=== PATIENT | female | born 1990 | race Caucasian/White ===

== ENCOUNTER 2020-09-22 15:52 | Inpatient (IN) | payer BC ==
[~2020-09-22] VITALS: Ht 162.6 cm; Wt 76.7 kg
--- NOTE | 2020-09-29 08:09 | PR ---
[facility] [address] [place], [place] [address] Signed PP Progress Notes Datetime Report Generated by CPN: 09/29/2020 08:09 SUBJECTIVE: [id number] Pain: Within Normal Limits Nausea/Vomiting: Denies Flatus: Yes Bowel Movement: No Vital Signs: [id number] Cardiovascular: Normal Respiratory: Normal Abdomen/Uterus: Normal Lochia: Normal Breasts: Normal Extremities: Normal Incision: Normal Exam Comments: NAD RRR No dyspnea fundus firm below umbilicus Dressing clean/dry without strikethrough IMPRESSION/PLAN/PROCEDURES: [id number] Impression: Normal Progression Plan: Continue Present Management Procedures: None Progress Notes: Pt is a 30 yo POD#1 s/p RLTCS -progressing well : Ambulating without dizziness/lightheadedness Lochia moderate well despite baby's tongue-tie Hgb 12.3 POD#1 from 13.2 preop Has not yet voided, tellez just removed Plan: continue routine antepartum care Anticipate DC to home tomorrow Signing Physician: Maykel Valentine DO Copies: *Electronically Signed* 09/29/20 08 MAYKEL VALENTINE DO PATIENT NAME: SVITLANA BEARDEN PROGRESS NOTE DATE OF : 88 PHYSICIAN: MAYKEL VALENTINE DO RPT #: [id number] REPORT IS CONFIDENTIAL AND NOT TO BE RELEASED WITHOUT AUTHORIZATION [address] [address] Signed ~ *Electronically Signed* 09/29/20 0809 MAYKEL VALENTINE DO PATIENT NAME: SVITLANA BEARDEN PROGRESS NOTE DATE OF : [birth year] PHYSICIAN: MAYKEL VALENTINE DO RPT #: [id number] REPORT IS CONFIDENTIAL AND NOT TO BE RELEASED WITHOUT AUTHORIZATION
--- NOTE | 2020-09-30 08:45 | PR ---
[facility] [address] [facility] [place], [place] [address] Signed PP Progress Notes Datetime Report Generated by CPKyle: 09/30/2020 08:45 SUBJECTIVE: [id number] Pain: Within Normal Limits Nausea/Vomiting: Denies Flatus: Yes Bowel Movement: No Vital Signs: [id number] Vital Signs: Reviewed; Within Normal Limits Cardiovascular: Normal Respiratory: Normal Abdomen/Uterus: Normal Lochia: Normal Breasts: Normal Extremities: Normal Incision: Normal Progress: Normal Exam Comments: NAD, nursing baby RRR CTAB FFBU Incision c/d/i, kade removed and replaced with steri strips Extremities: trace edema IMPRESSION/PLAN/PROCEDURES: [id number] Impression: Normal Progression Plan: Continue Present Management; Remove Kade; Discharge Procedures: None Progress Notes: POD#2 s/p RLTCS Progressing well pain well controlled with percocet and motrin +flatus, - BM ambulating and voiding without difficulty DC to home today, DC precautions reviewed Signing Physician: Maykel Valentine DO Copies: *Electronically Signed* 09/30/20 0845 MAYKEL VALENTINE DO PATIENT NAME: SVITLANA BEARDEN PROGRESS NOTE DATE OF : [birth year] PHYSICIAN: MAYKEL VALENTINE DO RPT #: [id number] REPORT IS CONFIDENTIAL AND NOT TO BE RELEASED WITHOUT AUTHORIZATION [address] [address] Signed ~ *Electronically Signed* 09/30/20 0845 MAYKEL VALENTINE DO PATIENT NAME: SVITLANA BEARDEN PROGRESS NOTE DATE OF : [birth year] PHYSICIAN: MAYKEL VALENTINE DO RPT #: [id number] REPORT IS CONFIDENTIAL AND NOT TO BE RELEASED WITHOUT AUTHORIZATION
--- NOTE | 2020-10-11 14:36 | OR ---
[facility] [address] [place], [place] [address] Signed DATE OF OPERATION: 09/28/2020 SURGEON: Maykel Valentine DO PROCEDURE: Repeat low-transverse . SHIP WASHER: Bonnie Delgado MD ESTIMATED BLOOD LOSS: 500 mL. ANESTHESIA: Spinal. LINES: None. DRAINS: Renteria catheter. FINDINGS: Normal-appearing uterus, bilateral tubes and ovaries. A viable term male weighing 8 pounds 5 ounces with Apgars 8 and 9 at 1 and 5 minutes respectively, centrally inserted three vessel cord with normal-appearing placenta, moderate amount of scarring of rectus muscle to the underlying fascia. INDICATION: The patient is a 30-year-old, G2, P1-0-0-1 at 39 weeks gestation with history of prior . Risks, benefits, and alternatives to scheduled repeat were reviewed previously in the office and the patient elected to proceed. She presented today for her scheduled and had no further questions at this time. DESCRIPTION OF PROCEDURE: The patient was taken back to the operating room, where she was given 2 g of Ancef and spinal anesthesia was placed by AITCHBONE BREAKER. She was positioned in the supine position with leftward tilt. Renteria catheter was placed. SCDs were turned on. She was prepped and draped in the normal sterile fashion and spinal was confirmed to be adequate. Incision was made through her prior Pfannenstiel incision and carried down through the underlying layer of the fascia. Fascial incision was extended laterally with Chery scissors with a Electronically Signed By: MAYKEL VALENTINE DO 10/06/20 1145 Electronically Signed By: MAYKEL VALENTINE DO 12/28/20 0412 PATIENT NAME: SVITLANA BEARDEN OPERATIVE REPORT DATE OF : 88 REPORT #: [id number] PHYSICIAN: MAYKEL VALENTINE DO PCP: NO PRIMARY CARE PHYSICIAN REPORT IS CONFIDENTIAL AND NOT TO BE RELEASED WITHOUT AUTHORIZATION [facility] [address] [place], [place] [address] Signed significant amount of scarring noted making developing this plane very difficult. The inferior margin of the incision was grasped with Celena's, elevated, and the underlying rectus muscle dissected off with difficulty as noted above. In a similar fashion the superior margin was grasped, elevated, and the underlying rectus muscle dissected off with equal difficulty. Peritoneum was grasped with hemostats, elevated and entered sharply with Chery scissors. This was extended superiorly with Chery scissors and inferiorly, although bladder was noted to be high and extension was limited. It was extended laterally with release of the perineum using Chery scissors and then bluntly with lateral traction, Silvano retractor was placed, and incision was made just above the vesicouterine reflection. Lightly stained meconium fluid was noted upon entry. Infant's head was grasped and elevated without any difficulty to the level of the hysterotomy; however, there was difficulty delivering through the hysterotomy and peritoneal incision had to be extended laterally with bandage scissors. This allowed for delivery of the 's head, followed shortly thereafter by body of the without difficulty. Immediately after being delivered, baby gave a spontaneous cry, cord was doubly clamped and cut, and baby was handed off to waiting nursery team. Cord blood was collected for Type and Mae. Segment of cord was collected and placenta was delivered easily with gentle cord traction and noted to be intact as noted above. The uterus was cleared of clots and debris and hysterotomy was closed in a double-layer closure first with 0 Monocryl in a running locked fashion, second with 0 Monocryl in an imbricating manner. Excellent hemostasis was noted following this double-layer closure. The pelvis was suction irrigated with sterile saline. Hemostasis was again noted and Silvano retractor was removed. ACell sheet was applied over the hysterotomy. Peritoneum was closed with 2-0 Vicryl in a running fashion. Rectus muscle was approximated with 0 Vicryl in a simple interrupted fashion. Small perforating vessels were cauterized with Bovie cautery. This layer was suction irrigated with warm sterile saline and noted to be hemostatic. The fascia was closed working laterally towards midline with 2 separate sutures of 0 Vicryl in a running fashion, meeting at midline. Subcutaneous layer was irrigated with warm sterile saline and perforating subcutaneous vessels were cauterized with Bovie cautery. Subcutaneous layer was closed in a running fashion with 3-0 Vicryl and the skin was closed with amanda. The patient tolerated the procedure very well. Uterus was created with minimal blood clots. Mother and baby were allowed to recover together skin to skin in her LDRP room. Sponge and instrument counts were correct x2. Maykel Valentine DO Electronically Signed By: MAYKEL VALENTINE DO 10/06/20 1145 Electronically Signed By: MAYKEL VALENTINE DO 12/28/20 0412 PATIENT NAME: SULEIMANSVITLANA SILVA OPERATIVE REPORT DATE OF : 88 REPORT #: [id number] PHYSICIAN: MAYKEL VALENTINE DO PCP: NO PRIMARY CARE PHYSICIAN REPORT IS CONFIDENTIAL AND NOT TO BE RELEASED WITHOUT AUTHORIZATION [address] [place], [place] [address] [facility] [place] /[id number] Copies: ~ Electronically Signed By: MAYKEL VALENTINE DO 10/06/20 1145 Electronically Signed By: MAYKEL VALENTINE DO 12/28/20 0412 PATIENT NAME: SVITLANA BEARDEN OPERATIVE REPORT DATE OF : 88 REPORT #: [id number] PHYSICIAN: MAYKEL VALENTINE DO PCP: NO PRIMARY CARE PHYSICIAN REPORT IS CONFIDENTIAL AND NOT TO BE RELEASED WITHOUT AUTHORIZATION
== END 2020-09-30 10:02 | disposition home or self-care (01) | DRG 787 ==
LOC: FBC 09-28 05:04
PROVIDERS: ADMIT Obstetrics & Gynecology; ATTEND Obstetrics & Gynecology
PROC: 10D00Z1 Extraction of Products of Conception, Low, Open Approach (ICD-10-PCS; principal; 2020-09-28 06:45)
DX: O34.211 Maternal care for low transverse scar from previous cesarean delivery (principal); K90.41 Non-celiac gluten sensitivity; N85.8 Other specified noninflammatory disorders of uterus; Z37.0 Single live birth; Z3A.39 39 weeks gestation of pregnancy; O32.2XX0 Maternal care for transverse and oblique lie, not applicable or unspecified; O99.284 Endocrine, nutritional and metabolic diseases complicating childbirth; E73.9 Lactose intolerance, unspecified; O99.62 Diseases of the digestive system complicating childbirth
CPT/HCPCS: 01961; 36415; 85027; J0690; J1885; J2001; J2270; J2274; J2300; J2405; J2590; J7121